=== PATIENT | male | born 1965 | race African-American/Black ===

== ENCOUNTER 2019-08-26 12:29 | Emergency (ER) | payer MEDICAID ==
[~2019-08-26] VITALS: Ht 177.8 cm; Wt 100.0 kg
[2019-08-26] MEDS ORDERED: MORPHINE SULFATE 4 MG/ML CPJ (NOT FOR IM USE) IV STA (15:34)
[2019-08-26] MEDS ORDERED: SODIUM CHLORIDE 0.9% 1,000 ML IV ONE (15:34)
[2019-08-26] MEDS ORDERED: ONDANSETRON HCL 4MG/2ML INJ IV STA (15:34)
[2019-08-26 16:13] LABS: BASOPHILS % 2.6 % (0.0-2.0); CHLORIDE 104 mEq/L (98-107); EOSINOPHILS % 0.5 % (0.0-5.0); HEMATOCRIT. 41.3 % (42.0-52.0); HEMOGLOBIN. 14.1 g/dL (14.0-18.0); LYMPHOCYTES % 39.7 % (20.0-50.0); MEAN CORPUSCULAR HEMOGLOBIN 33.7 pg (28.0-32.0); MEAN CORPUSCULAR VOLUME 98.6 fL (80.0-94.0); MEAN PLATELET VOLUME 8.2 fl (7.4-10.4); MONOCYTES % 8.1 % (2.0-8.0); NEUTROPHILS % 49.1 % (40.0-76.0); PLATELET 187 x1000/uL (130-400); RED BLOOD CELL COUNT 4.18 mill/uL (4.7-6.1); RED CELL DISTRIBUTION WIDTH 14.5 % (11.6-14.6)
[2019-08-26] MEDS ORDERED: KCL 20MEQ/100ML PREMIX 100 ML IV ONE (17:00)
[2019-08-26 17:20] VITALS: BP 128/89
[2019-08-26] MEDS ORDERED: CLONIDINE 0.1MG TABLET PO PRN (17:45)
[2019-08-26] MEDS ORDERED: MAGNESIUM/ALUMINUM HYDROXIDE/SIMETHICONE 30ML UDC PO PRN (17:45)
[2019-08-26] MEDS ORDERED: ZOLPIDEM TARTRATE 5MG TABLET PO PRN (17:45)
[2019-08-26] MEDS ORDERED: ONDANSETRON HCL 4MG/2ML INJ IV PRN (17:45)
[2019-08-26] MEDS ORDERED: IPRATROPIUM/ALBUTEROL 0.5-3(2.5)MG/3ML NEB HHN PRN (17:45)
[2019-08-26] MEDS ORDERED: LORAZEPAM 0.5MG TABLET PO PRN (17:45)
[2019-08-26] MEDS ORDERED: KETOROLAC 15MG/ML VIAL IV PRN (17:45)
[2019-08-26] MEDS ORDERED: ACETAMINOPHEN 325MG TABLET PO PRN (17:45)
[2019-08-26] MEDS ORDERED: DIPHENHYDRAMINE 50MG/ML VIAL IV PRN (17:45)
[2019-08-26] MEDS ORDERED: ENOXAPARIN 40MG/0.4ML SYR SUBCUT SCH (17:45)
[2019-08-26] MEDS ORDERED: DOCUSATE SODIUM 100MG CAPSULE PO PRN (17:45)
[2019-08-26] MEDS ORDERED: MVI, ADULT NO.1 10 ML, FOLIC ACID 1 MG, THIAMINE HCL 100 MG in SODIUM CHLORIDE 0.9% 1,0... IV SCH ×4 (17:45)
[2019-08-26 18:05] LABS: AMYLASE 143 IU/L (25-115); ETHANOL BLOOD 275 mg/dL
[2019-08-26 18:30] LABS: CLARITY URINE CLEAR (CLEAR); COLOR URINE DARK YELLOW (YELLOW); KETONES URINE TRACE (NEGATIVE); LEUKOCYTE ESTERASE URINE TRACE (NEGATIVE); NITRITE URINE NEGATIVE (NEGATIVE); OCCULT BLOOD URINE NEGATIVE (NEGATIVE); PH URINE 5.5 (4.5-8.0); PROTEIN URINE 1+ (NEGATIVE); SPECIFIC GRAVITY URINE 1.021 (1.005-1.030)
[2019-08-26 18:43] LABS: *AMPHETAMINES SCREEN URINE NEGATIVE (NEGATIVE); *BARBITURATES SCREEN URINE NEGATIVE (NEGATIVE); *BENZODIAZEPINES SCREEN URINE NEGATIVE (NEGATIVE); *COCAINE SCREEN URINE NEGATIVE (NEGATIVE); METHADONE URINE SCREEN NEGATIVE (NEGATIVE); OPIATES URINE SCREEN NEGATIVE (NEGATIVE)
[2019-08-26 18:44] LABS: CANNABINOID URINE SCREEN NEGATIVE (NEGATIVE); PHENCYCLIDINE URINE SCREEN NEGATIVE (NEGATIVE)
[2019-08-26] MEDS ORDERED: FAMOTIDINE 20MG TABLET PO SCH (21:00)
== END 2019-08-26 18:56 | disposition left against medical advice (07) ==
LOC: ER 13:52 → CANBEDREQ 19:58
DX: K85.90 Acute pancreatitis without necrosis or infection, unspecified (principal); K40.90 Unilateral inguinal hernia, without obstruction or gangrene, not specified as recurrent; F17.200 Nicotine dependence, unspecified, uncomplicated
CPT/HCPCS: 36415; 74176; 76870; 80053; 80305; 80320; 81003; 82150; 83036; 83690; 85025; 93005; 93976; 96374; 99284; J2270; J2405; J3480; J7030; G0480

== ENCOUNTER 2023-04-21 19:38 | Emergency (ER) | payer MEDICAID ==
[~2023-04-21] VITALS: Ht 182.9 cm; Wt 82.0 kg
[~2023-04-21 19:38] MED LIST: HYDR-4001 MT
[2023-04-21 20:28] LABS: BASOPHILS % 0.5 % (0.0-2.0); EOSINOPHILS % 0.2 % (0.0-5.0); HEMATOCRIT. 41.1 % (42.0-52.0); HEMOGLOBIN. 13.8 g/dL (14.0-18.0); LYMPHOCYTES % 50.9 % (20.0-50.0); MEAN CORPUSCULAR HEMOGLOBIN 33.6 pg (28.0-32.0); MEAN CORPUSCULAR VOLUME 100.5 fL (80.0-94.0); MEAN PLATELET VOLUME 8.2 fl (7.4-10.4); MONOCYTES % 6.7 % (2.0-8.0); NEUTROPHILS % 41.7 % (40.0-76.0); PLATELET 205 x1000/uL (130-400); RED BLOOD CELL COUNT 4.09 mill/uL (4.7-6.1); RED CELL DISTRIBUTION WIDTH 15.4 % (11.6-14.6)
[2023-04-21 20:36] LABS: CHLORIDE 104 mEq/L (98-107)
[2023-04-21 20:50] LABS: ETHANOL BLOOD 381 mg/dL
[2023-04-21 21:23] LABS: *AMPHETAMINES SCREEN URINE NEGATIVE (NEGATIVE); *BARBITURATES SCREEN URINE NEGATIVE (NEGATIVE); *BENZODIAZEPINES SCREEN URINE NEGATIVE (NEGATIVE); *COCAINE SCREEN URINE NEGATIVE (NEGATIVE); CANNABINOID URINE SCREEN PRESUMTIVE POSITIVE (NEGATIVE); METHADONE URINE SCREEN NEGATIVE (NEGATIVE); OPIATES URINE SCREEN NEGATIVE (NEGATIVE); PHENCYCLIDINE URINE SCREEN NEGATIVE (NEGATIVE)
[2023-04-21] MEDS ORDERED: CHLORDIAZEPOXIDE 25MG CAPSULE PO ONE (21:30)
[2023-04-21] MEDS ORDERED: POTASSIUM CHLORIDE 20MEQ TABLET SR PO ONE (21:30)
[2023-04-21] MEDS ORDERED: CHLORDIAZEPOXIDE 25MG CAPSULE PO NR (21:45)
[2023-04-21] MEDS ORDERED: POTASSIUM CHLORIDE 20MEQ TABLET SR PO NR (21:45)
[2023-04-22 02:37] VITALS: BP 120/80
== END 2023-04-22 02:38 | disposition home or self-care (01) ==
LOC: ER 19:38
DX: S09.90XA Unspecified injury of head, initial encounter (principal); T51.0X1A Toxic effect of ethanol, accidental (unintentional), initial encounter; W18.39XA Other fall on same level, initial encounter; Y93.89 Activity, other specified; Y92.89 Other specified places as the place of occurrence of the external cause; Y99.8 Other external cause status; I10 Essential (primary) hypertension; E87.6 Hypokalemia
CPT/HCPCS: 36415; 80053; 80305; 80320; 85025; 99284; G0480